=== PATIENT | female | born 1995 | race Caucasian/White ===

== ENCOUNTER → 2021-09-08 12:03 | Outpatient (CLI) | payer OTHER, MEDICAID, SELFPAY ==
[2021-09-08 19:42] LABS: Alanine Aminotransferase 18 IU/L (<35); Albumin 5.1 g/dL (3.5-5.0); Albumin Globulin Ratio 1.6 (1.0-2.8); Alkaline Phosphatase 74 U/L (38-126); Aspartate Aminotransferase 29 IU/L (14-36); BUN Creatinine Ratio 15.9 (6-22); Bilirubin Total 0.5 mg/dL (0.2-1.3); Blood Urea Nitrogen 10 mg/dL (7-17); Calcium 10.3 mg/dL (8.4-10.2); Carbon Dioxide 28 mmol/L (22-32); Chloride 103 mmol/L (98-107); Estimated Glomerular Filt Rate > 60.0 mL/min (>60); Globulin 3.1 g/dL (1.7-4.1); Glucose 87 mg/dL (70-100); HEMOLYSIS < 15 (0-50); Potassium 4.3 mmol/L (3.4-5.1); Sodium 142 mmol/L (137-145); Total Protein 8.2 g/dL (6.3-8.2)
[2021-09-08 20:08] LABS: TSH w/ Reflex to FT4 1.86 uIU/mL (0.47-4.68)
== END ==
PROVIDERS: PCP Physician Assistant Medical; Visit Provider Physician Assistant Medical
DX: R00.2 Palpitations (principal)
CPT/HCPCS: 80053; 84443

== ENCOUNTER → 2021-12-07 10:29 | Outpatient (CLI) | payer MEDICAID, OTHER, SELFPAY ==
[2021-12-07 11:01] LABS: COVID19 -Nasal RAPID Negative (Negative)
== END ==
PROVIDERS: PCP Physician Assistant Medical; Visit Provider Family Medicine Sleep Medicine
DX: Z20.822 Contact with and (suspected) exposure to COVID-19 (principal)
CPT/HCPCS: 87635

== ENCOUNTER → 2021-12-07 15:18 | Outpatient (CLI) | payer OTHER, MEDICAID, SELFPAY ==
--- NOTE | 2021-12-07 | DI.NM.S_ITS ---
PROCEDURE: NM EXERCISE TREADMILL NON NUC COMPARISON: None. INDICATIONS: palpitations FINDINGS: The patient exercised for 9 minutes and 27 seconds, reaching 10.1 METs, VIV +8%. 101% of maximum predicted heart rate achieved. Appropriate BP response to exercise (resting BP 138/80mmHg, max BP 172/88mmHg). No angina during the study. No ectopy and no ST changes with exercise or during recovery. IMPRESSION: Low risk, normal treadmill ECG only stress test with mildly reduced exercise tolerance (VIV +8%). Target heart rate reached and appropriate BP response to exercise. No chest pain during the study. Dictated by: Moody Mcnamara MD on 12/08/2021 at 13:04 Approved by: Moody Mcnamara MD on 12/08/2021 at 13:06
--- NOTE | 2021-12-07 16:02 | PM.TREADMILL ---
Cardiac Stress Test Report Referral & Results Date Patient Seen: 12/07/21 Time Patient Seen: 16:02 Requesting provider: Moody Mcnamara Indication: palpitations Rest ECG: Sinus tachycardia Procedure Note: Standard [place] protocol, 9:27, 9.4 METS Reduced exercise capacity, VIV +8% Normal hemodynamic response to exercise; max predicted HR achieved No chest pain or anginal symptoms No significant ST changes at peak exercise No palpitations No ectopy Impression: Normal exercise stress test Please note: Actual ECG tracings can be found in the PACS system.
== END ==
PROVIDERS: PCP Physician Assistant Medical; Referring Provider Internal Medicine Cardiovascular Disease; Visit Provider Internal Medicine Cardiovascular Disease
DX: R00.2 Palpitations (principal); Z20.822 Contact with and (suspected) exposure to COVID-19
CPT/HCPCS: 87635; 93017; C9803

== ENCOUNTER → 2022-01-03 08:40 | Outpatient (CLI) | payer OTHER, MEDICAID, SELFPAY ==
[2022-01-03 18:53] LABS: Alanine Aminotransferase 19 IU/L (<35); Albumin 5.1 g/dL (3.5-5.0); Albumin Globulin Ratio 1.6 (1.0-2.8); Alkaline Phosphatase 56 U/L (38-126); Aspartate Aminotransferase 32 IU/L (14-36); BUN Creatinine Ratio 11.4 (6-22); Bilirubin Total 0.8 mg/dL (0.2-1.3); Blood Urea Nitrogen 8 mg/dL (7-17); Carbon Dioxide 28 mmol/L (22-32); Chloride 102 mmol/L (98-107); Estimated Glomerular Filt Rate > 60.0 mL/min (>60); Globulin 3.2 g/dL (1.7-4.1); Glucose 80 mg/dL (70-100); HEMOLYSIS < 15 (0-50); Potassium 4.2 mmol/L (3.4-5.1); Sodium 138 mmol/L (137-145); Total Protein 8.3 g/dL (6.3-8.2)
== END ==
PROVIDERS: PCP Physician Assistant Medical; Visit Provider Physician Assistant
DX: M54.50 Low back pain, unspecified (principal); R10.9 Unspecified abdominal pain
CPT/HCPCS: 80053; 81002

== ENCOUNTER 2022-01-04 22:33 | Emergency (ER) | payer OTHER, MEDICAID, SELFPAY ==
[2022-01-04 22:45] VITALS: BP 136/86; PULSE 98; RESP 16; TEMP 36.3; O2SAT 100; BMI 22.3
--- NOTE | 2022-01-04 22:52 | DI.US.S_ITS ---
PROCEDURE: US PELVIC COMPLETE INDICATIONS: 2 MONTHS POST AB; BLEEDING SINCE TECHNIQUE: Real-time scanning was performed of the pelvic organs, with image documentation. Additional endovaginal scanning was necessary due to incomplete visualization of the adnexal and endometrial structures by transabdominal scanning. COMPARISON: None. FINDINGS: Uterus: Uterus is anteverted and normal in size at 7.2 x 4.1 x 6.0 cm. The myometrium is homogeneous. The endometrium measures 9.6 mm combined thickness. Heterogeneous material with internal vascularity is seen within the endometrium. Ovaries: Ovaries are within normal limits. Other: Small amount of echogenic fluid adjacent to the left ovary. IMPRESSION: 1. Heterogeneous hypervascular material within the endometrial cavity, possibly indicating a small amount of retained products of conception. 2. Possible small amount of hemorrhage adjacent to the left ovary. We strive to produce accurate, complete, and clear reports of imaging services. To assist us in improving patient care, this report was composed using standard report templates and voice recognition software. Therefore, it may contain abnormal punctuation, insertions and/or omissions. Occasional wrong-word or sound-alike substitutions may occur. Though we review the report and make efforts to correct it, we do recommend that the report be read carefully in proper context to recognize any text inaccuracies. Dictated by: Antonia Stone M.D. on 01/05/2022 at 0:18 Approved by: Antonia Stone M.D. on 01/05/2022 at 0:19
[2022-01-04 23:01] LABS: Add Manual Diff / Slide Review NO; Basophils Absolute Auto 0 /uL (0-100); Basophils Percent Auto 0.3 % (0-2); Eosinophils Absolute Auto 0 /uL (0-450); Eosinophils Percent Auto 0.4 % (2-4); Hematocrit 37.5 % (36-46); Hemoglobin 12.5 g/dL (12.0-16.0); Lymphocytes Absolute Auto 3200 /uL (1100-4500); Lymphocytes Percent Auto 35.5 % (25-40); Mean Corpuscular HGB Conc 33.3 % (30-36); Mean Corpuscular Hemoglobin 29.7 PG (26-34); Mean Corpuscular Volume 89.3 fL (80-100); Monocytes Absolute Auto 900 /uL (0-900); Monocytes Percent Auto 9.8 % (3-14); Neutrophils Absolute Auto 4900 /uL (1500-7000); Platelet Count 272 X10^3/uL (150-400); Red Cell Distribution Width 12.7 % (11.6-14.8); White Blood Cell Count 9.1 X10^3/uL (4.5-11.0)
[2022-01-04 23:11] LABS: Alanine Aminotransferase 19 IU/L (<35); Albumin Globulin Ratio 1.4 (1.0-2.8); Alkaline Phosphatase 77 U/L (38-126); Aspartate Aminotransferase 30 IU/L (14-36); BUN Creatinine Ratio 19.3 (6-22); Bilirubin Total 0.4 mg/dL (0.2-1.3); Blood Urea Nitrogen 11 mg/dL (7-17); Calcium 9.3 mg/dL (8.4-10.2); Carbon Dioxide 27 mmol/L (22-32); Chloride 104 mmol/L (98-107); Estimated Glomerular Filt Rate > 60.0 mL/min (>60); Globulin 3.5 g/dL (1.7-4.1); Glucose 99 mg/dL (70-100); HEMOLYSIS < 15 (0-50); Potassium 3.8 mmol/L (3.4-5.1); Sodium 136 mmol/L (137-145); Total Protein 8.5 g/dL (6.3-8.2)
--- NOTE | 2022-01-04 23:43 | ED.GENADULT ---
HPI - General Adult General Chief complaint: Vaginal Bleeding Stated complaint: heavy menstrual bleeding, sent by MD Time Seen by Provider: 01/04/22 22:54 Source: patient Mode of arrival: Ambulatory Limitations: no limitations History of Present Illness HPI narrative: Patient is a 26-year-old female. In November this year underwent a elective instrumentation . She states she was approximately 7 weeks along at the time. Since that time she has had off and on vaginal spotting. Over the past 24-36 hours she has had an increase in this bleeding to the point where it was about 1 hour of very heavy bleeding with clots but now it is improved to the point of a normal menstrual cycle. She states that she had sexual intercourse last week and afterwards had significant lower abdominal pain which has improved. She is not on control. Related Data Allergies Allergy/AdvReac Type Severity Reaction Status Date / Time Penicillins AdvReac Mild Rash Verified 09/21/21 10:00 Review of Systems Constitutional Constitutional: Denies fever(s) Gastrointestinal Gastrointestinal: Reports as per HPI and Reports system reviewed and no additional complaints, except as documented Genitourinary Genitourinary: Reports system reviewed and no additional complaints, except as documented and Reports as per HPI Musculoskeletal Musculoskeletal: Denies back pain Integumentary/Breasts Skin/Breast: Reports system reviewed and no additional complaints, except as documented Hematologic/Lymphatic On Anticoagulants: No Patient History Medical History Flank pain Palpitations Scoliosis Social History Smoking Status: Never smoker Smoking Status: Never smoker Exam Initial Vital Signs Initial Vital Signs: Vital Signs Temperature 97.4 F L 01/04/22 22:45 Pulse Rate 98 H 01/04/22 22:45 Respiratory Rate 16 01/04/22 22:45 Blood Pressure 136/86 01/04/22 22:45 Pulse Oximetry 100 01/04/22 22:45 Const General: cooperative and healthy appearing HENMT Head: normal to inspection and normocephalic Resp Effort & Inspection: normal respiratory effort Cardio Rate: regular rate GI Inspection: normal to inspection and non-distended Palpation: tender Skin General: no rashes or lesions noted Neuro General: patient alert, patient awake and moves all extremities Extrem General: capillary refill normal Psych Appearance: grossly normal and well kempt Course Orders Ordered: ED Orders 01/04/22 22:50 ABO RH Type Stat Complete Blood Count AUTO DIFF Stat Comprehensive Metabolic Panel Stat HCG Quantitative /Beta subunit Stat 01/04/22 22:52 US pelvic complete Stat Vital Signs Vital signs: Vital Signs - 8 hr 01/04/22 22:45 01/05/22 01:05 Temperature 97.4 F L Pulse Rate 98 H 85 Respiratory Rate 16 Blood Pressure 136/86 117/74 Pulse Oximetry 100 99 Medical Decision Making Medical Records Medical records reviewed: Yes I reviewed the patient's medical records. Lab Data Lab results reviewed: Yes I reviewed the patient's lab results. Result diagrams: 01/04/22 22:50 01/04/22 22:50 Labs: Lab Results 01/04/22 01/04/22 01/04/22 Range/Units 22:50 22:50 22:50 WBC 9.1 (4.5-11.0) X10^3/uL RBC 4.20 (4.0-5.2) X10^6/uL Hgb 12.5 (12.0-16.0) g/dL Hct 37.5 (36-46) % MCV 89.3 (80-100) fL MCH 29.7 (26-34) PG MCHC 33.3 (30-36) % RDW 12.7 (11.6-14.8) % Plt Count 272 (150-400) X10^3/uL Neut % (Auto) 54.0 (50-75) % Lymph % (Auto) 35.5 (25-40) % Whitley % (Auto) 9.8 (3-14) % Eos % (Auto) 0.4 L (2-4) % Baso % (Auto) 0.3 (0-2) % Neut # (Auto) 4900 (8720-1273) /uL Lymph # (Auto) 3200 (5756-8112) /uL Whitley # (Auto) 900 (0-900) /uL Eos # (Auto) 0 (0-450) /uL Baso # (Auto) 0 (0-100) /uL Sodium 136 L (137-145) mmol/L Potassium 3.8 (3.4-5.1) mmol/L Chloride 104 (98-107) mmol/L Carbon Dioxide 27 (22-32) mmol/L BUN 11 (7-17) mg/dL Creatinine 0.57 (0.52-1.04) mg/dL Estimated GFR > 60.0 (>60) mL/min BUN/Creatinine Ratio 19.3 (6-22) Glucose 99 (70-100) mg/dL Calcium 9.3 (8.4-10.2) mg/dL Total Bilirubin 0.4 (0.2-1.3) mg/dL AST 30 (14-36) IU/L ALT 19 (<35) IU/L Alkaline Phosphatase 77 (38-126) U/L Total Protein 8.5 H (6.3-8.2) g/dL Albumin 5.0 (3.5-5.0) g/dL Globulin 3.5 (1.7-4.1) g/dL Albumin/Globulin Ratio 1.4 (1.0-2.8) HCG, Quant 15.9 mIU/mL Blood Type 01/04/22 Range/Units 22:50 WBC (4.5-11.0) X10^3/uL RBC (4.0-5.2) X10^6/uL Hgb (12.0-16.0) g/dL Hct (36-46) % MCV (80-100) fL MCH (26-34) PG MCHC (30-36) % RDW (11.6-14.8) % Plt Count (150-400) X10^3/uL Neut % (Auto) (50-75) % Lymph % (Auto) (25-40) % Whitley % (Auto) (3-14) % Eos % (Auto) (2-4) % Baso % (Auto) (0-2) % Neut # (Auto) (6877-2445) /uL Lymph # (Auto) (5514-7944) /uL Whitley # (Auto) (0-900) /uL Eos # (Auto) (0-450) /uL Baso # (Auto) (0-100) /uL Sodium (137-145) mmol/L Potassium (3.4-5.1) mmol/L Chloride (98-107) mmol/L Carbon Dioxide (22-32) mmol/L BUN (7-17) mg/dL Creatinine (0.52-1.04) mg/dL Estimated GFR (>60) mL/min BUN/Creatinine Ratio (6-22) Glucose (70-100) mg/dL Calcium (8.4-10.2) mg/dL Total Bilirubin (0.2-1.3) mg/dL AST (14-36) IU/L ALT (<35) IU/L Alkaline Phosphatase (38-126) U/L Total Protein (6.3-8.2) g/dL Albumin (3.5-5.0) g/dL Globulin (1.7-4.1) g/dL Albumin/Globulin Ratio (1.0-2.8) HCG, Quant mIU/mL Blood Type O Positive Imaging Data US - FUNCTIONAL MENTAL DISABILITY TEACHER: Radiologist's Impression: [address] [address] Ultrasound Report Signed Patient: Lillian Martinez I MR#: [id number] : 1995 Acct:[id number] Age/Sex: 26 / F Date of Service: 01/04/22 Loc: ED Accession Number: [id number] ?? Procedure: US pelvic complete Ordering Provider: Magdy Clark D.O. PROCEDURE:? US PELVIC COMPLETE ? INDICATIONS:? 2 MONTHS POST AB; BLEEDING SINCE ? TECHNIQUE:? Real-time scanning was performed of the pelvic organs, with image documentation.? Additional endovaginal scanning was necessary due to incomplete visualization of the adnexal and endometrial structures by transabdominal scanning.? ? COMPARISON:? None. ? FINDINGS:? ?? Uterus:? Uterus is anteverted and normal in size at 7.2 x 4.1 x 6.0 cm. The myometrium is homogeneous. ? The endometrium measures 9.6 mm combined thickness.? Heterogeneous material with internal vascularity is seen within the endometrium. ? Ovaries:? Ovaries are within normal limits. ? Other:? Small amount of echogenic fluid adjacent to the left ovary. ? ? IMPRESSION:? 1. Heterogeneous hypervascular material within the endometrial cavity, possibly indicating a small amount of retained products of conception. 2. Possible small amount of hemorrhage adjacent to the left ovary.? ? ? We strive to produce accurate, complete, and clear reports of imaging services. To assist us in improving patient care, this report was composed using standard report templates and voice recognition software. Therefore, it may contain abnormal punctuation, insertions and/or omissions. Occasional wrong-word or sound-alike substitutions may occur. Though we review the report and make efforts to correct it, we do recommend that the report be read carefully in proper context to recognize any text inaccuracies. ? ? Dictated by: Antonia Stone M.D. on 01/05/2022 at 0:18 ? ? Approved by: Antonia Stone M.D. on 01/05/2022 at 0:19?? MDM Narrative Medical decision making narrative: Patient not anemic. Not febrile. Not hypotensive. Not tachycardic. Does have a benign exam. Ultrasound shows concerns for retained products of conception. Patient is Rh positive. Discuss case with Dr. Espinoza on-call for OBGYN. Patient does not require emergent surgical intervention based on her exam and vital signs and labs today. Plan will be is to discharge the patient home. Contact information for the patient was sent to Dr. Espinoza. The patient was also given information for Dr. edward's office. Plan of his to get her in within the next couple days to discuss potential interventions. Patient was given strict return precautions. She expressed understanding and agreement. Discharge Plan Departure Patient Disposition: Home Clinical Impression: Vaginal bleeding Instructions: DI for Vaginal Bleeding Activity Restrictions/Additional Instructions: You should be receiving a call from Dr. Espinoza office for a follow-up within the next couple days. Return to the emergency department for any fevers, worsening pain, bleeding more than a couple pads an hour for several hours in a row or any other worsening symptoms. Referrals: Elizabeth Espinoza MD [Physician] - Tamara Young PA-C [Primary Care Provider] -
[2022-01-05 00:05] LABS: HCG Quantitative /Beta subunit 15.9 mIU/mL
[2022-01-05 01:05] VITALS: BP 117/74; PULSE 85; O2SAT 99
== END 2022-01-05 01:08 | disposition home or self-care (01) ==
PROVIDERS: Emergency Provider Emergency Medicine; PCP Physician Assistant Medical
DX: N93.9 Abnormal uterine and vaginal bleeding, unspecified (principal); R10.9 Unspecified abdominal pain
CPT/HCPCS: 36415; 76830; 76856; 80053; 84702; 85025; 86900; 86901; 99283; 99284

== ENCOUNTER → 2022-09-25 14:41 | Outpatient (CLI) | payer OTHER, MEDICAID, SELFPAY ==
[2022-09-25 18:53] LABS: Add Manual Diff / Slide Review NO; Basophils Absolute Auto 0 /uL (0-100); Basophils Percent Auto 0.3 % (0-2); Eosinophils Absolute Auto 0 /uL (0-450); Eosinophils Percent Auto 0.2 % (2-4); Hematocrit 35.3 % (36-46); Lymphocytes Absolute Auto 2300 /uL (1100-4500); Lymphocytes Percent Auto 28.7 % (25-40); Mean Corpuscular HGB Conc 33.8 % (30-36); Mean Corpuscular Hemoglobin 29.5 PG (26-34); Mean Corpuscular Volume 87.1 fL (80-100); Monocytes Absolute Auto 700 /uL (0-900); Monocytes Percent Auto 8.3 % (3-14); Neutrophils Absolute Auto 5000 /uL (1500-7000); Neutrophils Percent Auto 62.5 % (50-75); Platelet Count 224 X10^3/uL (150-400); Red Blood Cell Count 4.05 X10^6/uL (4.0-5.2); Red Cell Distribution Width 12.3 % (11.6-14.8)
[2022-09-25 18:58] LABS: Alanine Aminotransferase 16 IU/L (<35); Albumin 4.3 g/dL (3.5-5.0); Albumin Globulin Ratio 1.4 (1.0-2.8); Alkaline Phosphatase 65 U/L (38-126); Aspartate Aminotransferase 24 IU/L (14-36); BUN Creatinine Ratio 17.6 (6-22); Bilirubin Total 0.3 mg/dL (0.2-1.3); Blood Urea Nitrogen 9 mg/dL (7-17); Calcium 9.2 mg/dL (8.4-10.2); Carbon Dioxide 22 mmol/L (22-32); Chloride 103 mmol/L (98-107); Estimated Glomerular Filt Rate > 60 mL/min (>60); Glucose 113 mg/dL (70-100); HEMOLYSIS < 15 (0-50); Potassium 3.7 mmol/L (3.4-5.1); Sodium 138 mmol/L (137-145); Total Protein 7.3 g/dL (6.3-8.2)
[2022-09-25 19:16] LABS: Free T3, Triiodothyronine Free 3.26 pg/mL (2.77-5.27); Free T4, Direct Thyroxine 0.92 ng/dL (0.78-2.19)
[2022-09-25 19:29] LABS: Thyroid Stimulating Hormone 1.75 uIU/mL (0.47-4.68)
[2022-09-25 19:33] LABS: Ferritin 37 ng/mL (6-137)
[2022-09-25 19:47] LABS: Vitamin B12 419 pg/mL (239-931)
[2022-09-27 06:36] LABS: Thyroid Peroxidase Antibodies 10 IU/mL (0-34)
[2022-09-28 19:23] LABS: Anti Thyroglobulin Antibody <1.0 IU/mL (0.0-0.9)
[2022-10-08 15:13] LABS: Cardiolipin IgA Negative (.)
== END ==
PROVIDERS: PCP Physician Assistant Medical; Visit Provider Naturopath
DX: E83.52 Hypercalcemia (principal); F41.9 Anxiety disorder, unspecified; N96 Recurrent pregnancy loss; R00.2 Palpitations
CPT/HCPCS: 80053; 82607; 82728; 83520; 84439; 84443; 84481; 85025; 86147; 86148; 86376; 86800

== ENCOUNTER → 2023-01-02 14:38 | Outpatient (CLI) | payer OTHER, MEDICAID, SELFPAY ==
[2023-01-02 20:59] LABS: Follicle Stimulating Hormone 3.29 mIU/mL
[2023-01-02 21:01] LABS: HCG Quantitative /Beta subunit < 2.4 mIU/mL
[2023-01-02 21:14] LABS: TSH w/ Reflex to FT4 2.51 uIU/mL (0.47-4.68)
[2023-01-03 03:48] LABS: Prolactin 18.7 ng/mL (3.0-18.6)
[2023-01-04 22:48] LABS: Deamidated Gliadin Ab IgA 4 units (0-19); Deamidated Gliadin Ab IgG 2 units (0-19); Immunoglobulin A,Qn 267 mg/dL (87-352); t-Transglutaminase IgA <2 U/mL (0-3)
== END ==
PROVIDERS: PCP Physician Assistant Medical; Visit Provider Family Medicine
DX: O03.9 Complete or unspecified spontaneous abortion without complication (principal)
CPT/HCPCS: 82784; 83001; 83516; 84144; 84146; 84443; 84702; 86900; 86901

== ENCOUNTER → 2023-02-05 12:17 | Outpatient (CLI) | payer OTHER, MEDICAID, SELFPAY ==
--- NOTE | 2023-02-05 12:18 | DI.US.S_ITS ---
PROCEDURE: US PELVIC COMPLETE INDICATIONS: RECENT MISCARRIAGES TECHNIQUE: Real-time scanning was performed of the pelvic organs, with image documentation. Additional endovaginal scanning was necessary due to incomplete visualization of the adnexal and endometrial structures by transabdominal scanning. COMPARISON: [facility], , US PELVIC COMPLETE, 01/04/2022, 23:16. FINDINGS: Uterus: Uterus is retroverted and normal in size at 7.5 x 3.8 x 4.5 cm. The myometrium is homogeneous. The endometrium measures 10 mm combined thickness. Ovaries: The right ovary measures 3.5 x 4.6 x 2.0 cm, with a calculated ovarian volume of 17 cc. The left ovary measures 3.3 x 1.2 x 3.4 cm, with a calculated ovarian volume of 9 cc. Possible corpus luteum 2.1 centimeters right ovary. Other: No pathologic free abdominal or pelvic fluid. IMPRESSION: No focal endometrial lesion identified. We strive to produce accurate, complete, and clear reports of imaging services. To assist us in improving patient care, this report was composed using standard report templates and voice recognition software. Therefore, it may contain abnormal punctuation, insertions and/or omissions. Occasional wrong-word or sound-alike substitutions may occur. Though we review the report and make efforts to correct it, we do recommend that the report be read carefully in proper context to recognize any text inaccuracies. Dictated by: Triston Goodson M.D. on 02/06/2023 at 8:28 Approved by: Triston Goodson M.D. on 02/06/2023 at 8:34
== END ==
PROVIDERS: PCP Family Medicine; Referring Provider Family Medicine; Visit Provider Family Medicine
DX: N96 Recurrent pregnancy loss (principal)
CPT/HCPCS: 76830; 76856

== ENCOUNTER → 2023-03-21 14:02 | Outpatient (CLI) | payer OTHER, MEDICAID, SELFPAY ==
[2023-03-21 19:28] LABS: C-Reactive Protein Quant < 0.5 mg/dL (<1.0)
[2023-03-21 19:36] LABS: Alanine Aminotransferase 21 IU/L (<35); Albumin 4.8 g/dL (3.5-5.0); Albumin Globulin Ratio 1.6 (1.0-2.8); Alkaline Phosphatase 60 U/L (38-126); Aspartate Aminotransferase 27 IU/L (14-36); Bilirubin Total 0.5 mg/dL (0.2-1.3); Blood Urea Nitrogen 9 mg/dL (7-17); Calcium 9.2 mg/dL (8.4-10.2); Carbon Dioxide 26 mmol/L (22-32); Chloride 102 mmol/L (98-107); Estimated Glomerular Filt Rate > 60 mL/min (>60); Glucose 85 mg/dL (70-100); HEMOLYSIS < 15 (0-50); Sodium 138 mmol/L (137-145); Total Protein 7.8 g/dL (6.3-8.2)
[2023-03-21 20:04] LABS: Erythrocyte Sedimentation Rate 11 MM/HR (0-20)
[2023-03-23 22:27] LABS: Deamidated Gliadin Ab IgA 4 units (0-19); Deamidated Gliadin Ab IgG 2 units (0-19); Immunoglobulin A,Qn 280 mg/dL (87-352); t-Transglutaminase IgA <2 U/mL (0-3)
[2023-03-26 22:22] LABS: ANA Screen, IFA Negative (.)
[2023-04-04 15:40] LABS: DQ8 (DQA1 03XX, DQB1 0302) Negative (.)
== END ==
PROVIDERS: PCP Family Medicine; Visit Provider Family Medicine
DX: M25.50 Pain in unspecified joint (principal); R19.8 Other specified symptoms and signs involving the digestive system and abdomen; R60.0 Localized edema
CPT/HCPCS: 80053; 81377; 82784; 83516; 85651; 86038; 86140

== ENCOUNTER → 2023-06-11 13:31 | Outpatient (CLI) | payer OTHER, MEDICAID, SELFPAY ==
[2023-06-11 19:47] LABS: Alanine Aminotransferase 20 IU/L (<35); Albumin 4.5 g/dL (3.5-5.0); Albumin Globulin Ratio 1.7 (1.0-2.8); Alkaline Phosphatase 71 U/L (38-126); Aspartate Aminotransferase 27 IU/L (14-36); BUN Creatinine Ratio 17.2 (6-22); Bilirubin Total 0.2 mg/dL (0.2-1.3); Blood Urea Nitrogen 11 mg/dL (7-17); Calcium 9.1 mg/dL (8.4-10.2); Carbon Dioxide 27 mmol/L (22-32); Chloride 101 mmol/L (98-107); Estimated Glomerular Filt Rate > 60 mL/min (>60); Globulin 2.7 g/dL (1.7-4.1); Glucose 108 mg/dL (70-100); HEMOLYSIS < 15 (0-50); Potassium 4.2 mmol/L (3.4-5.1); Sodium 136 mmol/L (137-145); Total Protein 7.2 g/dL (6.3-8.2)
[2023-06-11 19:52] LABS: Hematocrit 36.5 % (36-46); Hemoglobin 12.4 g/dL (12.0-16.0)
[2023-06-11 20:21] LABS: Ferritin 29 ng/mL (6-137)
[2023-06-13 22:42] LABS: IgA 242 mg/dL (87-352); t-Transglutaminase IgA <2 U/mL (0-3)
== END ==
PROVIDERS: PCP Family Medicine; Visit Provider Family Medicine
DX: D64.9 Anemia, unspecified (principal); R19.8 Other specified symptoms and signs involving the digestive system and abdomen
CPT/HCPCS: 80053; 82728; 82784; 83516; 85014; 85018

== ENCOUNTER → 2023-09-11 16:44 | Outpatient (CLI) | payer OTHER, MEDICAID, SELFPAY ==
--- NOTE | 2023-09-11 16:46 | DI.MRI.S_ITS ---
PROCEDURE: MR HEAD/BRAIN WO CON INDICATIONS: numbness of R hand, difficulty speaking, visual loss TECHNIQUE: Noncontrast axial T1 spin echo, axial T2 fast spin echo, sagittal and axial FLAIR, coronal T2 fast spin echo, axial gradient echo, axial diffusion and ADC through the brain. COMPARISON: None. FINDINGS: Image quality: Excellent. CSF Spaces: Basal cisterns are patent. No extra-axial fluid collections. Ventricles are normal in size and shape. Brain: No intracranial masses or hemorrhage. Howell/white matter interface is normal. Brainstem appears normal. Diffusion-weighted images demonstrate no acute ischemic insult. No chronic ischemic insults. Normal intravascular flow voids are present. Skull and face: Calvarium has normal marrow signal. Orbits appear normal. Sinuses: Sinuses and mastoids are clear. IMPRESSION: No findings of acute or subacute infarction can be seen. No acute intracranial process is seen. No imaging explanation is found for this patient's presenting symptoms. Dictated by: Carlos Lynne M.D. on 09/11/2023 at 17:20 Approved by: Carlos Lynne M.D. on 09/11/2023 at 17:21
== END ==
PROVIDERS: PCP Family Medicine; Referring Provider Family Medicine; Visit Provider Family Medicine
DX: R20.0 Anesthesia of skin (principal); R47.9 Unspecified speech disturbances; H54.7 Unspecified visual loss
CPT/HCPCS: 70551

== ENCOUNTER → 2023-12-10 10:40 | Outpatient (CLI) | payer OTHER, MEDICAID, SELFPAY ==
[2023-12-10 19:32] LABS: Add Manual Diff / Slide Review NO; Basophils Absolute Auto 0 /uL (0-100); Basophils Percent Auto 0.2 % (0-2); Eosinophils Absolute Auto 0 /uL (0-450); Eosinophils Percent Auto 0.5 % (2-4); Hematocrit 37.8 % (36-46); Hemoglobin 12.8 g/dL (12.0-16.0); Lymphocytes Absolute Auto 1700 /uL (1100-4500); Mean Corpuscular HGB Conc 33.8 % (30-36); Mean Corpuscular Hemoglobin 29.9 PG (26-34); Mean Corpuscular Volume 88.4 fL (80-100); Monocytes Absolute Auto 400 /uL (0-900); Monocytes Percent Auto 9.4 % (3-14); Neutrophils Absolute Auto 2200 /uL (1500-7000); Neutrophils Percent Auto 50.9 % (50-75); Platelet Count 268 X10^3/uL (150-400); Red Blood Cell Count 4.28 X10^6/uL (4.0-5.2); Red Cell Distribution Width 12.6 % (11.6-14.8); White Blood Cell Count 4.4 X10^3/uL (4.5-11.0)
[2023-12-10 19:53] LABS: HEMOLYSIS < 15 (0-50); Iron 108 ug/dL (37-170)
[2023-12-10 19:58] LABS: Alanine Aminotransferase 17 IU/L (<35); Albumin 4.4 g/dL (3.5-5.0); Albumin Globulin Ratio 1.5 (1.0-2.8); Alkaline Phosphatase 65 U/L (38-126); Aspartate Aminotransferase 25 IU/L (14-36); BUN Creatinine Ratio 21.8 (6-22); Bilirubin Total 0.5 mg/dL (0.2-1.3); Blood Urea Nitrogen 12 mg/dL (7-17); Calcium 9.8 mg/dL (8.4-10.2); Carbon Dioxide 25 mmol/L (22-32); Chloride 104 mmol/L (98-107); Creatine Kinase 84 U/L (30-135); Estimated Glomerular Filt Rate > 60 mL/min (>60); Glucose 83 mg/dL (70-100); HEMOLYSIS < 15 (0-50); Potassium 4.1 mmol/L (3.4-5.1); Sodium 136 mmol/L (137-145); Total Protein 7.4 g/dL (6.3-8.2)
[2023-12-10 20:04] LABS: Percent Iron Saturation 40 % (15-50); Total Iron Binding Capacity 273 ug/dL (265-497); Transferrin 236 mg/dL (206-381)
[2023-12-10 20:19] LABS: Thyroid Stimulating Hormone 1.56 uIU/mL (0.47-4.68)
[2023-12-10 20:22] LABS: Ferritin 33 ng/mL (6-137)
[2023-12-12 11:39] LABS: EBV Ab VCA, IgG 19.3 U/mL (0.0-17.9); EBV Early Antigen AB,IgG <9.0 U/mL (0.0-8.9)
== END ==
PROVIDERS: PCP Family Medicine; Visit Provider Family Medicine
DX: R53.83 Other fatigue (principal); M79.10 Myalgia, unspecified site; N94.6 Dysmenorrhea, unspecified; D64.9 Anemia, unspecified
CPT/HCPCS: 80053; 82550; 82728; 83540; 83550; 84439; 84443; 85025; 86663; 86664; 86665

== ENCOUNTER → 2024-02-03 10:22 | Outpatient (CLI) | payer OTHER, MEDICAID, SELFPAY ==
[2024-02-03 19:40] LABS: Hepatitis B Surface Antigen NEGATIVE s/c (NEGATIVE)
[2024-02-03 19:55] LABS: HIV 1 & 2 Ab/Ag 4th Gen Combo NEGATIVE (NEGATIVE); Hep C Virus Ab w/Reflex Quant NEGATIVE s/c (NEGATIVE)
[2024-02-03 20:49] LABS: Urine N gonorrhoeae NOT DETECTED
[2024-02-03 20:54] LABS: Urine Chlamydia NOT DETECTED
[2024-02-10 08:40] LABS: Treponema pallidum Antibodies Non Reactive
== END ==
PROVIDERS: PCP Family Medicine; Visit Provider Family Medicine
DX: Z20.2 Contact with and (suspected) exposure to infections with a predominantly sexual mode of transmission (principal)
CPT/HCPCS: 86780; 86803; 87340; 87389; 87491; 87591

== ENCOUNTER → 2024-06-09 12:35 | Outpatient (CLI) | payer OTHER, MEDICAID, SELFPAY ==
--- NOTE | 2024-06-09 12:36 | DI.ECHO.S_ITS ---
[facility] : : [address] : : [place] : : [id number] : : Phone: [phone] Echocardiogram Report + + :Name: SHELLEY JESUS I Study Date: 06/09/2024 Height: 65 in : :Hospital ReadingLocation: Weight: 130 lb : : Gender: Female BSA: 1.6 m2 : :: 1995 Age: 28 yrs BP: 150/87 mmHg: :Reason For Study: ABNORMAL EKG : :Ordering Physician: BERRY CLEVELAND Performed By: Adriano Jamil : :Referring: BERRY CLEVELAND : + + Interpretation Summary The left ventricle is normal in size and wall thickness. Left ventricular systolic function appears normal without focal wall motion abnormalities. The ejection fraction is estimated to be 65-70%. Diastolic parameters suggest probable normal left ventricular diastolic function and normal filling pressures. The right ventricle is normal in size and function. The left atrial size is normal. There is no significant valvular heart disease. The aortic root is normal size. Procedure: A two-dimensional transthoracic echocardiogram with color flow and Doppler was performed. The study quality was technically adequate. There is no prior echocardiogram noted for this patient. The patient was in sinus tachycardia with heart rates between 95-114 bpm during the exam. Left Ventricle: The left ventricle is normal in size and wall thickness. Left ventricular systolic function appears normal without focal wall motion abnormalities. The ejection fraction is estimated to be 65-70%. Diastolic parameters suggest probable normal left ventricular diastolic function and normal filling pressures. Right Ventricle: The right ventricle is normal in size and function. Atria: The left atrial size is normal. Right atrial size is normal. The interatrial septum grossly appears intact with no obvious evidence for an atrial septal defect. Mitral Valve: The mitral valve is normal. There is no mitral valve stenosis. There is no mitral regurgitation noted. Aortic Valve: The aortic valve is trileaflet. There is no aortic valve stenosis. No aortic regurgitation is present. Tricuspid Valve: The tricuspid valve is normal. There is no tricuspid stenosis. No tricuspid regurgitation. Pulmonic Valve: The pulmonic valve is not well visualized. There is no pulmonic valvular stenosis. There is no pulmonic valvular regurgitation. There is no significant valvular heart disease. Great Vessels: The aortic root is normal size. The dimensions of the ascending aorta are normal. The IVC is of normal diameter and collapses greater than 50% with a sniff. This suggests a low right atrial pressure of 3 mm Hg. Pericardium/ Pleura There is no pericardial effusion. There is no pleural effusion. MMode/2D Measurements & Calculations LVIDd: 4.3 cm LVOT diam: 1.8 cm LVIDs: 2.8 cm Ao root diam: 2.4 cm FS: 34.7 % asc Aorta Diam: 2.3 cm IVSd: 0.74 cm Ao Arch Diam (Prox Trans): 1.7 cm LVPWd: 0.69 cm LV haq. diameter/BSA (cm/m^2): 2.6 LV sys. diameter/BSA (cm/m^2): 1.7 LA A2 area: 14.3 cm2 RA long axis: 4.1 cm LA A4 area: 14.2 cm2 RA area: 10.4 cm2 LA length (vol): 4.8 cm RA vol: 22.5 ml LA vol: 35.9 ml RA : 13.7 ml/m2 LA vol index: 21.8 ml/m2 IVC diam: 1.3 cm RVD1 (basal): 3.0 cm RVD2 (mid): 3.0 cm TAPSE: 3.1 cm Doppler Measurements & Calculations Ao V2 max: 153.4 cm/sec LVOT Max Yunier: 128.3 cm/sec Ao V2 mean: 108.6 cm/sec LV V1 max P.6 mmHg Ao max P.4 mmHg LV V1 VTI: 25.5 cm Ao mean P.2 mmHg ANNIKA(I,D): 2.3 cm2 Ao V2 VTI: 28.1 cm ANNIKA(V,D): 2.1 cm2 sev ratio: 0.91 ANNIKA indexed to BSA (cm^2/m^2): 1.4 MV E max yunier: 107.7 cm/sec PA V2 max: 164.8 cm/sec MV A max yunier: 66.2 cm/sec PA V2 mean: 123.7 cm/sec MV E/A: 1.6 PA mean P.6 mmHg Med Peak E' Yunier: 17.1 cm/sec PA pr(Accel): 17.3 mmHg E/E' med: 6.3 Lat Peak E' Uynier: 17.5 cm/sec E/E' lat: 6.1 E/e' average: 6.2 MV dec time: 0.15 sec SV(LVOT): 64.8 ml Reading Physician:03:33 PM
== END ==
LOC: ECHO 12:35
PROVIDERS: PCP Family Medicine; Referring Provider Physician Assistant; Visit Provider Physician Assistant
DX: R01.1 Cardiac murmur, unspecified (principal); R00.2 Palpitations; F41.9 Anxiety disorder, unspecified; R94.31 Abnormal electrocardiogram [ECG] [EKG]
CPT/HCPCS: 93306